=== PATIENT | male | born 1950 | race Caucasian/White ===

== ENCOUNTER → 2018-04-25 | Outpatient (CLI) | payer OTHER, BC | END | disposition home or self-care (01) | LOC: ULTRA 12:44 | DX: K74.60 Unspecified cirrhosis of liver (principal); R18.8 Other ascites ==

== ENCOUNTER 2018-05-08 00:30 | Inpatient (IN) | payer OTHER, BC ==
[~2018-05-08] VITALS: Ht 190.5 cm; Wt 141.6 kg
--- NOTE | ~2018-05-08 | D ---
[facility] [place] [address] DISCHARGE SUMMARY Name: FREDERIC WHIPPLE Room #: 218-P [facility] IN M.R.#: [id number] Admission: 05/08/18 Attend Phys: Oscar Upton MD Discharge: 05/16/18 Date of : 48 Report #: [id number] THIS REPORT FOR: //name// CC: Alberto Upton FINAL DIAGNOSES: 1. Scrotal cellulitis. 2. Cirrhosis of the liver. 3. Abdominal ascites. 4. Diabetes type 2. 5. Chronic kidney disease stage 4. PROCEDURES: 1. Paracentesis x 2. 2. Scrotal ultrasound x 2. HOSPITAL COURSE: The patient is admitted with abdominal pain and scrotal pain. There were signs of cellulitis and initial concern for bacterial peritonitis; however, cultures of the peritoneal fluid were negative. He received 2 separate episodes of paracentesis removing 17 liters followed by, I believe, 12 liters. His creatinine bumped slightly from around 1.8 or 1.9 up to about 2.3. His lymphedema was controlled with his wraps. Dr. Rafael Quevedo followed him. I had the Urology service see him, but ultrasound did not confirm or show a need for drainage of abscess from the scrotum and therefore that was treated conservatively. I had had long discussions with him on several different days regarding post-hospital care including options of nursing home rehabilitation and home health, which he continued to decline. I spoke to him on the day of discharge about his grave prognosis with liver failure and potential for renal failure and that he was not a very good candidate for dialysis. He is going to take this under consideration. PHYSICAL EXAMINATION: GENERAL: On the day of discharge, he was resting comfortably in bed. LUNGS: Clear. HEART: Regular. ABDOMEN: Protuberant, soft, fluid wave. Normal bowel sounds. EXTREMITIES: No edema. DISPOSITION: He is discharged to home to resume diet, activity, usual medications with Augmentin for 7 more days. His prognosis is poor. <ELECTRONICALLY SIGNED> By: Oscar Upton MD 05/19/18 1211 1017 1049 Oscar Upton MD /nt
--- NOTE | ~2018-05-08 | EKG ---
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
--- NOTE | ~2018-05-08 | HC ---
[facility] [place] [address] CONSULTATION Name: FREDERIC WHIPPLE Room #: 218-P ADM IN M.R.#: [id number] Admission: 05/08/18 Attend Phys: Oscar Upton MD Discharge: Date of : 48 Report #: [id number] THIS REPORT FOR: //name// CC: Alberto Upton DATE OF SERVICE: 05/08/2018 REASON FOR CONSULTATION: Possible peritonitis. HISTORY OF PRESENT ILLNESS: The patient is a 68-year-old with cirrhosis, portal hypertension and recurrent ascites. Diagnosed nonalcoholic steatohepatitis with cirrhosis. Has been evaluated at [facility] for TIPS and/or transplantation. Due to multiple factors he was not a suitable candidate for either. He has been undergoing repeat paracenteses of large volume. Two days ago, he developed increased abdominal pain with predominant right-sided including his hip region and down into his groin. No fever, chills or sweats. No trauma. Severity up to 10/10. He has had intermittent nausea with no vomiting. No definite abdominal pain outside of this right-sided discomfort. No diarrhea. No dysuria or frequency. No hematuria. He has had some discomfort into his right groin previously. No back or disk disease noted prior. He presented to the Emergency Room where small volume paracentesis was obtained. He is scheduled for large volume paracentesis today. REVIEW OF SYSTEMS: CONSTITUTIONAL: Denies any other constitutional symptoms than noted above. SKIN: Unremarkable. LYMPH: Negative. HEMATOLOGIC: Negative. PULMONARY: Negative. CARDIOVASCULAR: Negative. It is felt that his ascites is due to his portal hypertension. GASTROINTESTINAL: As above. GENITOURINARY: Negative. JOINTS: Negative. NEUROLOGIC: Negative. PSYCHIATRIC: Negative. PAST MEDICAL HISTORY: Hypertension, hyperlipidemia, diabetes, cirrhosis, varices, peripheral neuropathy, obesity, obstructive sleep apnea, stroke, previous toe amputation, knee surgery, cataract surgery. FAMILY HISTORY: Noncontributory. SOCIAL HISTORY: Nonsmoker, no significant alcohol intake. Lives at home by himself. He is a , has pet cat. No HIV risks. Previous work as a [facility] [employer] [place] [address] CONSULTATION Name: FREDERIC WHIPPLE Room #: 218-P 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 PHYSICAL EXAMINATION: VITAL SIGNS: Temperature 99.2, heart rate 68, blood pressure 96/55. He is on 2 liters of oxygen per nasal cannula. GENERAL: He was alert and cooperative and pleasant, in no acute distress. Mood and affect normal. Mental status normal. HEENT: Unremarkable. NECK: Supple, with no thyromegaly or mass. JVD normal. LUNGS: Clear. HEART: Regular, without murmur, gallop or rub. ABDOMEN: Very large, protuberant abdomen with large volume of ascites. No peritoneal signs. Could not palpate masses or hepatosplenomegaly. GENITOURINARY: External genitalia unremarkable with very mild tenderness to his right testicle. 1+ scrotal edema. EXTREMITIES: 3+ lower extremity edema. Extremities otherwise unremarkable. He had compression wraps on. Range of motion in both hips normal. No tenderness on internal and external rotation. BACK: Nontender. He had no CVA tenderness. NEUROLOGIC: Nonfocal. RECTAL: Not performed. LABORATORY STUDIES: Sodium 133, potassium 4.9, bicarbonate 20, creatinine 1.8, bilirubin 1.2, alkaline phosphatase 334, AST 16, ALT 20. BNP 4600. Hemoglobin 11.6, platelet count 211,000, WBC 15.5 with 87% segs. Urinalysis unremarkable. Paracentesis 20,300 RBCs, 153 WBCs with 68% neutrophils. Culture pending. Gram stain pending. Chest x-ray was clear. CT of the abdomen: Cirrhosis, portal hypertension, increased spleen size, ascites, questionable colitis. IMPRESSION: Increased abdominal pain concerning for peritonitis. Diagnostic tap, however, did not confirm this. I am suspecting much of his pain is related to his large volume of ascites. He does have leukocytosis, source of which is yet to be determined. No other evidence of end organ disease noted. I do not think that he has got infection in the hip for it was not irritable during examination. He does have mild testicular tenderness, but nothing that appears swollen and more than I would expect with the amount of edema that he has. His urinalysis was unremarkable. Elevated brain natriuretic peptide concerning for a component of cardiac source of his edema. This may be right-sided disease. In addition, the patient has hypertension, diabetes, which is stable and chronic kidney disease. Hepatorenal syndrome is a true possibility, although his creatinine is at his baseline of 1.8. RECOMMENDATION: We will continue with ceftriaxone and metronidazole pending further studies. He will have a repeat paracentesis today and we will see if [facility] [address] [place] [address] CONSULTATION Name: FREDERIC WHIPPLE Room #: 218-P ADM IN M.R.#: [id number] Admission: 05/08/18 Attend Phys: Oscar Upton MD Discharge: Date of : 48 Report #: [id number] this helps his pain. If not, we will proceed with further workup. We would also check echocardiogram if not done yet. <ELECTRONICALLY SIGNED> By: Rafael Quevedo MD 05/09/18 1829 1201 1824 Rafael Quevedo MD /nt
--- NOTE | ~2018-05-08 | HC ---
[facility] [place] [address] CONSULTATION Name: FREDERIC WHIPPLE Room #: 218-P ADM IN M.R.#: [id number] Admission: 05/08/18 Attend Phys: Oscar Upton MD Discharge: Date of : 48 Report #: [id number] THIS REPORT FOR: //name// CC: Alberto Upton DATE OF SERVICE: 05/09/2018 CHIEF COMPLAINT: Right scrotal lesion. HISTORY OF PRESENT ILLNESS: The patient is a 68-year-old gentleman who is being seen today at the request Dr. Upton for evaluation and management of right hemiscrotal lesion. He was noted to have thickening of the right hemiscrotum and an ultrasound was performed, which did not show an abscess. He currently is admitted with difficulties walking. History is significant for [id number]-[id number] cirrhosis of the liver, having required multiple paracenteses procedures. PAST MEDICAL HISTORY: LÓPEZ cirrhosis with ascites, type 2 diabetes, chronic kidney disease stage 3 surgery. PAST SURGICAL HISTORY: Unknown. FAMILY HISTORY: Noncontributory. SOCIAL HISTORY: No alcohol or tobacco abuse. ALLERGIES: None. HOME MEDICATIONS: Lasix, Amaryl, Glucophage, Plavix, and Protonix. REVIEW OF SYSTEMS: He has lower abdominal pain. PHYSICAL EXAMINATION: GENERAL: He is lying in bed. He is a well-developed, well-nourished gentleman. VITAL SIGNS: Temperature 36.6, pulse 60, respirations 16, blood pressure 115/72. ABDOMEN: Protuberant with ascites. GENITOURINARY: He has normal phallus. Testes descended bilaterally. He does have area on the right side of the scrotum, which is indurated, but he reports general tenderness with any sort of scrotal manipulation. LABORATORY DATA: White count 10.3 thousand, hemoglobin 8.9, hematocrit 26.9, platelets 84847. Sodium is 132, potassium 6.0, chloride 105, CO2 20, BUN 46, creatinine 2.0, glucose 247. Urine is clear yellow, specific gravity is 1.025, pH 5.5, negative for protein, ketones, blood, nitrites or leukocyte esterase. [address] [address] CONSULTATION Name: FREDERIC WHIPPLE Room #: 218-P ADM IN M.R.#: [id number] Admission: 05/08/18 Attend Phys: Oscar Upton MD Discharge: Date of : 48 Report #: [id number] Paracentesis yesterday was successful draining mL of ascites. IMAGING DATA: Scrotal ultrasound shows 3.2 x 2.5 x 2.6 focal area of soft tissue swelling and induration on the lateral aspect of the right scrotum consistent with a phlegmon or hematoma. There is no definite fluid collection to suggest abscess. IMPRESSION: Right scrotal cellulitis. PLAN: We will reexamine him in the morning. If this does organize, he may require drainage. However, he has been on Plavix until hospitalization. This would potentially complicate a procedure. <ELECTRONICALLY SIGNED> By: Oscar Lindsay MD 05/12/18 0633 1732 0356 Oscar Lindsay MD /nt
--- NOTE | ~2018-05-08 | 2DMMODE ---
[facility] [place] [address] 2 D/M-MODE ECHOCARDIOGRAM Name: FREDERIC WHIPPLE Room #: 200-I ADM IN M.R.#: [id number] Admission: 05/08/18 Attend Phys: Brittany Wang Discharge: Date of : 48 Date of Service: 05/08/18 1445 Report #: [id number] THIS REPORT FOR: //name// APPROVED REPORT Study performed: 05/08/2018 13:36:53 EXAM: Comprehensive 2D, Doppler, and color-flow Echocardiogram Patient Location: Echo lab Room #: 200 Status: routine BSA: 2.64 HR: 60 bpm BP: 95/55 mmHg Rhythm: NSR Other Information Study Quality: Adequate Technically limited study due to morbid obesity. Exam done with patient in wheelchair. Indications Edema, cirrhosis. 2D Dimensions RVDd: 45.20 mm IVSd: 12.01 (7-11mm) LVOT Diam: 21.25 (18-24mm) LVDd: 45.93 mm PWd: 11.70 (7-11mm) Ascending Ao: 42.34 (22-36mm) LVDs: 29.06 (25-40mm) Aortic Root: 36.43 mm Fiore's LVEF: 66.62 % Volumes Left Atrial Volume (Systole) Single Plane 4CH: 64.17 mL Single Plane 2CH: 80.71 mL LA ESV Index: 30.00 mL/m2 Aortic Valve AoV Peak Corbin.: 2.09 m/s AO Peak Gr.: 17.52 mmHg LVOT Max P.25 mmHg AO Mean Gr.: 11.41 mmHg AO V2 Mean: 1.64 m/s LVOT Max V: 1.25 m/s AO V2 VTI: 37.81 cm CORTEZ Vmax: 2.12 cm2 [facility] [place] [address] 2 D/M-MODE ECHOCARDIOGRAM Name: SARABJITFREDERIC E Room #: 200-I [facility] IN ..#: [id number] Admission: 05/08/18 Attend Phys: Brittany Wang Discharge: Date of : 48 Date of Service: 05/08/18 1445 Report #: [id number] Mitral Valve E/A Ratio: 3.5 MV Decel. Time: 237.41 ms MV E Max Corbin.: 0.97 m/s MV A Corbin.: 0.28 m/s MV PHT: 68.85 ms IVRT: 83.04 ms Pulmonary Valve PV Peak Corbin.: 1.39 m/s PV Peak Gr.: 7.68 mmHg Tricuspid Valve TR Peak Corbin.: 3.01 m/s RAP Estimate: 5.00 mmHg TR Peak Gr.: 36.26 mmHg PA Pressure: 41.00 mmHg Left Ventricle The left ventricle is normal size. There is normal LV segmental wall motion. Mild concentric left ventricular hypertrophy. The left ventricular systolic function is normal. The left ventricular ejection fraction is within the normal range. LVEF is 65-70%. Moderate diastolic dysfunction is present (pseudonormal filling). Right Ventricle Right ventricle is mildly dilated. The right ventricular systolic function is normal. Atria Left atrium is mildly dilated. Right atrium is mildly dilated. Aortic Valve The Aortic valve is moderately sclerotic. Mild to moderate aortic regurgitation. There is no aortic valvular stenosis. Mitral Valve Mitral valve leaflets are thickened. There is no mitral valve regurgitation noted. No evidence of mitral valve stenosis. Tricuspid Valve The tricuspid valve is normal in structure. Mild to moderate tricuspid regurgitation. Estimated PAP is 40-45mmHg. Pulmonic Valve [address] [address] 2 D/M-MODE ECHOCARDIOGRAM Name: FREDERIC WHIPPLE Room #: 200-I [facility] IN [facility]#: [id number] Admission: 05/08/18 Attend Phys: Brittany Wang Discharge: Date of : 48 Date of Service: 05/08/18 1445 Report #: [id number] The pulmonary valve is normal in structure. Trace pulmonic regurgitation. Great Vessels The aortic root is normal in size. Ascending aorta is dilated at 4.2cm. IVC is normal in size and collapses >50% with inspiration. Pericardium There is no pericardial effusion. <Conclusion> The left ventricle is normal size. Mild concentric left ventricular hypertrophy. The left ventricular systolic function is normal. Moderate diastolic dysfunction is present (pseudonormal filling). Right ventricle is mildly dilated. The right ventricular systolic function is normal. Left atrium is mildly dilated. The Aortic valve is moderately sclerotic. Mild to moderate aortic regurgitation. There is no mitral valve regurgitation noted. Mild to moderate tricuspid regurgitation. Estimated PAP is 40-45mmHg. There is no pericardial effusion. <ELECTRONICALLY SIGNED> By: Tank Gracia MD 05/08/18 1445 1445 1445 Tank Gracia MD /INF
--- NOTE | ~2018-05-08 | EKG ---
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 05/08/18 0848 0209 0209 William Retana MD, [facility] /EPI
--- NOTE | ~2018-05-08 | H ---
[facility] [place] [address] HISTORY AND PHYSICAL Name: FREDERIC WHIPPLE Room #: 200-I ADM IN M.R.#: [id number] Admission: 05/08/18 Attend Phys: Oscar Upton MD Discharge: Date of : 48 Report #: [id number] THIS REPORT FOR: //name// CC: Alberto Upton DATE OF SERVICE: 05/08/2018 CHIEF COMPLAINT: Right hip abdominal and scrotal pain. HISTORY OF PRESENT ILLNESS: The patient is a 68-year-old gentleman with nonalcohol steatohepatitis and cirrhosis of the liver, who was admitted to the Emergency Room with some generalized pain. He was having pain in his right hip and was having difficulty walking. He also complained of some swelling and redness of his scrotum. He reported to ER that he had some pain in the right lower quadrant. Symptoms are not improved with conservative treatment at home, and he presented to the Emergency Room. He has had a history of massive ascites. It required multiple paracentesis procedures in recent months times. He has had 14 liters of fluid removed with paracentesis. He has been evaluated for a TIPS procedure, both here and at , and unfortunately, he is not a candidate for this, nor candidate for liver transplant according to his report of his conversation with the hepatology team at . PAST MEDICAL HISTORY: LÓPEZ, cirrhosis of liver with ascites, diabetes type 2, chronic kidney disease stage 3. PAST SURGICAL HISTORY: Unknown. FAMILY HISTORY: Noncontributory. SOCIAL HISTORY: No chronic alcohol or tobacco use. ALLERGIES: Unknown. MEDICATIONS: Lasix, Amaryl, Glucophage, Plavix, Protonix. REVIEW OF SYSTEMS: He denies headache, chest pain, shortness of breath, dysuria, myalgias, arthralgias, syncope or fall. PHYSICAL EXAMINATION: VITAL SIGNS: Temperature 37.3, pulse 68, respirations 20, blood pressure 96/55, O2 sat 99% on room air. GENERAL: He is awake and alert, resting in bed in no distress. HEAD AND NECK: Unremarkable. LUNGS: Clear. HEART: Regular. [facility] [address] [place] [address] HISTORY AND PHYSICAL Name: FREDERCI WHIPPLE Room #: 200-I [facility] IN [facility]#: [id number] Admission: 05/08/18 Attend Phys: Oscar Upton MD Discharge: Date of : 48 Report #: [id number] ABDOMEN: Protuberant, soft. There is a palpable fluid. Normoactive bowel sounds. No rebound tenderness in the right quadrant. Scrotum is red with some swelling. EXTREMITIES: 2+ edema with lymphedema wraps. NEUROLOGIC: Cranial nerves intact. Speech is fluent. Motor strength 4/5. LABORATORY DATA: CT of the abdomen was reviewed, chest x-ray, lab work. I discussed the case with the ER physician and Infectious Disease. ASSESSMENT: 1. Abdominal ascites. 2. Abdominal pain. 3. Cirrhosis of the liver. 4. Nonalcoholic steatohepatitis. 5. Diabetes type 2. 6. Chronic kidney disease, stage 3. 7. Lymphedema. 8. History of esophageal varices on EGD 2 years ago. 9. Portal hypertension. PLAN: Fluid was removed for culture in the ER, he has received one dose of antibiotics, and I have asked Dr. Rafael Quevedo to see him in consultation for consideration of bacterial peritonitis given his elevated white count and some abdominal pain. He is scheduled for paracentesis again today and may need a second procedure tomorrow. Other home medications will continue with the exception of metformin, which is to be discontinued due to his renal disease. <ELECTRONICALLY SIGNED> By: Oscar Upton MD 05/08/18 1208 1050 1153 Oscar Upton MD /nt
[~2018-05-08 00:30] MED LIST: ALDACTONE50 MG PO; AMARYL2 MG PO; ASA5UEC PO; ASPERCREME76.5 GM TOP; LACTULOSE20 GM/30 M PO; LANTUS SOL100 UNIT/1 SUBQ; LASIX 20 MG TAB20 MG PO; METFORMIN HCL500 MG PO; PLAVIX 75 MG TA75 M1 PO; PROTONIX 20 MG20 M1 PO; TRIAMCINOLONE A80 G2 TOP
[2018-05-08 00:47] VITALS: BP 132/60
[2018-05-08] MEDS ORDERED: AMARYL2 MG PO (01:08)
[2018-05-08] MEDS ORDERED: LASIX 40 MG TAB40 M2 PO (01:08)
[2018-05-08] MEDS ORDERED: GLUCOPHAGE XR500 MG PO (01:09)
[2018-05-08] MEDS ORDERED: PLAVIX 75 MG TA75 M1 PO (01:09)
[2018-05-08] MEDS ORDERED: PROTONIX 20 MG20 MG PO (01:10)
[2018-05-08] MEDS ORDERED: INSULIN PEN NE1 EAC1 (01:12)
[2018-05-08 01:29] LABS: ABSOLUTE NEUTROPHILS 13.6 thou/uL (1.4-8.2); BASOPHILS 0.5 % (0.0-2.0); HEMATOCRIT 35.8 % (42.0-52.0); HEMOGLOBIN 11.6 gm/dL (14.0-18.0); LYMPHOCYTES 3.5 % (24.0-44.0); MCH 24.4 pg (26.0-34.0); MCHC 32.3 g/dL (28.0-37.0); MCV 75.7 fL (80.0-100.0); MONOCYTES 7.3 % (1.0-8.0); PLATELET COUNT 211 thou/uL (150-400); POLYS 87.7 % (36.0-66.0); RBC 4.73 mil/uL (4.50-6.00); RDW 18.5 % (10.5-14.5); WBC 15.5 thou/uL (4.0-11.0)
[2018-05-08 01:34] LABS: CALCIUM 10.2 mg/dL (8.5-10.1); CREATININE 1.8 mg/dL (0.7-1.3); POTASSIUM 4.9 mmol/L (3.5-5.1)
[2018-05-08 01:47] LABS: ALBUMIN 2.4 g/dL (3.4-5.0); DIRECT BILIRUBIN 0.5 mg/dL (<0.1-0.3); TOTAL BILIRUBIN 1.2 mg/dL (<0.1-1.0); TOTAL PROTEIN 6.6 g/dL (6.4-8.2)
[2018-05-08 03:50] LABS: URINE BILIRUBIN NEGATIVE (Negative); URINE BLOOD NEGATIVE (Negative); URINE CLARITY CLEAR; URINE COLOR YELLOW; URINE GLUCOSE-RANDOM* NEGATIVE (Negative); URINE KETONES NEGATIVE (Negative); URINE LEUKOCYTES-REFLEX NEGATIVE (Negative); URINE NITRITE-REFLEX NEGATIVE (Negative); URINE PROTEIN (DIPSTICK) NEGATIVE (Negative); URINE SPECIFIC GRAVITY 1.025 (1.005-1.035); URINE UROBILINOGEN 0.2 E.U./dl (0.2-1.0)
[2018-05-08 04:57] LABS: BF NUCLEATED CELLS 153; BF RBC 20347
[2018-05-08 04:58] LABS: CLARITY CLOUDY; COLOR PINK; TOTAL VOLUME 6 mL
[2018-05-08 05:12] LABS: INR 1.1; PROTIME 10.8 Seconds (9.3-11.4)
[2018-05-08 05:43] LABS: BF MACROPHAGE 1; BF NEUTROPHILS 68; SOURCE PERITONEAL
[2018-05-08 05:50] VITALS: BP 108/46
[2018-05-08 06:17] VITALS: BP 96/55
[2018-05-08 19:30] VITALS: BP 113/39
[2018-05-09 00:03] VITALS: BP 112/44
[2018-05-09 03:29] LABS: ABSOLUTE NEUTROPHILS 8.8 thou/uL (1.4-8.2); BASOPHILS 0.2 % (0.0-2.0); EOSINOPHILS 0.9 % (0.0-3.0); HEMATOCRIT 26.9 % (42.0-52.0); LYMPHOCYTES 4.2 % (24.0-44.0); MCH 25.1 pg (26.0-34.0); MCHC 32.9 g/dL (28.0-37.0); MCV 76.4 fL (80.0-100.0); MONOCYTES 8.9 % (1.0-8.0); POLYS 85.8 % (36.0-66.0); RBC 3.53 mil/uL (4.50-6.00); WBC 10.3 thou/uL (4.0-11.0)
[2018-05-09 03:35] LABS: HEMOGLOBIN 8.9 gm/dL (14.0-18.0); PLATELET COUNT 97 thou/uL (150-400)
[2018-05-09 03:44] LABS: ALBUMIN 1.6 g/dL (3.4-5.0); TOTAL BILIRUBIN 0.5 mg/dL (<0.1-1.0); TOTAL PROTEIN 4.8 g/dL (6.4-8.2)
[2018-05-09 04:06] VITALS: BP 115/47
[2018-05-09 07:30] VITALS: BP 116/48
[2018-05-09 16:43] VITALS: BP 115/72
[2018-05-09 20:43] VITALS: BP 113/57
[2018-05-10 03:13] LABS: HEMATOCRIT 28.5 % (42.0-52.0); HEMOGLOBIN 9.5 gm/dL (14.0-18.0); MCH 24.9 pg (26.0-34.0); MCHC 33.3 g/dL (28.0-37.0); MCV 74.9 fL (80.0-100.0); RBC 3.8 mil/uL (4.50-6.00); RDW 19.2 % (10.5-14.5); WBC 10.8 thou/uL (4.0-11.0)
[2018-05-10 03:20] LABS: CALCIUM 8.7 mg/dL (8.5-10.1)
[2018-05-10 03:21] LABS: POTASSIUM 4.8 mmol/L (3.5-5.1)
[2018-05-10 04:01] VITALS: BP 113/59
[2018-05-10 07:19] VITALS: BP 98/55
[2018-05-10 16:16] VITALS: BP 92/48
[2018-05-10 19:35] VITALS: BP 107/45
[2018-05-11 04:23] LABS: CALCIUM 8.5 mg/dL (8.5-10.1); CREATININE 2.1 mg/dL (0.7-1.3); POTASSIUM 4.5 mmol/L (3.5-5.1)
[2018-05-11 04:24] VITALS: BP 98/55
[2018-05-11 04:39] LABS: HEMATOCRIT 27.7 % (42.0-52.0); HEMOGLOBIN 9.3 gm/dL (14.0-18.0); MCH 25.2 pg (26.0-34.0); MCHC 33.6 g/dL (28.0-37.0); MCV 74.9 fL (80.0-100.0); RBC 3.7 mil/uL (4.50-6.00); RDW 19.3 % (10.5-14.5); WBC 9.7 thou/uL (4.0-11.0)
[2018-05-11 08:30] VITALS: BP 107/64
[2018-05-11 12:15] VITALS: BP 108/54
[2018-05-11 16:42] VITALS: BP 109/57
[2018-05-11 20:30] VITALS: BP 115/56
[2018-05-12 04:45] VITALS: BP 111/50
[2018-05-12 07:57] VITALS: BP 113/52
[2018-05-12 11:34] LABS: CALCIUM 8.8 mg/dL (8.5-10.1); CREATININE 2.3 mg/dL (0.7-1.3); POTASSIUM 4.5 mmol/L (3.5-5.1)
[2018-05-12 12:03] VITALS: BP 100/47
[2018-05-12 16:10] VITALS: BP 117/57
[2018-05-12 18:55] VITALS: BP 109/56
[2018-05-13 04:17] VITALS: BP 112/43
[2018-05-13 07:45] VITALS: BP 103/57
[2018-05-13 11:32] LABS: CALCIUM 8.8 mg/dL (8.5-10.1); CREATININE 2.3 mg/dL (0.7-1.3); POTASSIUM 4.3 mmol/L (3.5-5.1)
[2018-05-13 11:55] VITALS: BP 95/44
[2018-05-13 15:30] VITALS: BP 113/56
[2018-05-13 20:16] VITALS: BP 108/56
[2018-05-14 03:28] VITALS: BP 121/57
[2018-05-14 07:55] VITALS: BP 110/62
[2018-05-14 12:00] VITALS: BP 113/61
[2018-05-14 12:02] LABS: CALCIUM 8.8 mg/dL (8.5-10.1); CREATININE 2.3 mg/dL (0.7-1.3); POTASSIUM 4.5 mmol/L (3.5-5.1)
[2018-05-14 16:05] VITALS: BP 116/63
[2018-05-14 19:50] VITALS: BP 129/64
[2018-05-15 03:35] VITALS: BP 108/63
[2018-05-15 04:32] LABS: HEMATOCRIT 28.8 % (42.0-52.0); HEMOGLOBIN 9.5 gm/dL (14.0-18.0); MCH 25.1 pg (26.0-34.0); MCV 76.1 fL (80.0-100.0); PLATELET COUNT 110 thou/uL (150-400); RBC 3.79 mil/uL (4.50-6.00); RDW 19.3 % (10.5-14.5); WBC 8.8 thou/uL (4.0-11.0)
[2018-05-15 04:34] LABS: ALBUMIN 1.4 g/dL (3.4-5.0); CALCIUM 8.6 mg/dL (8.5-10.1); CREATININE 2.3 mg/dL (0.7-1.3); POTASSIUM 4.5 mmol/L (3.5-5.1); TOTAL BILIRUBIN 0.5 mg/dL (<0.1-1.0); TOTAL PROTEIN 4.8 g/dL (6.4-8.2)
[2018-05-15 05:01] LABS: ABSOLUTE NEUTROPHILS 7.1 thou/uL (1.4-8.2); ANISOCYTOSIS 1+; METAMYELOCYTES 3 %; TOXIC GRANULATION 2+
[2018-05-15 05:02] LABS: LARGE PLATELETS OCCASIONAL
[2018-05-15 07:58] VITALS: BP 111/61
[2018-05-15 11:51] VITALS: BP 116/64
[2018-05-15 19:49] VITALS: BP 113/60
[2018-05-16 00:07] VITALS: BP 110/59
[2018-05-16 04:09] LABS: CALCIUM 8.6 mg/dL (8.5-10.1); CREATININE 2.3 mg/dL (0.7-1.3); POTASSIUM 4.5 mmol/L (3.5-5.1)
[2018-05-16 04:36] VITALS: BP 111/63
[2018-05-16 08:17] VITALS: BP 109/61
[2018-05-16] MEDS ORDERED: AUGMENTIN 500-1 EACH PO (09:49)
[2018-05-16 12:09] VITALS: BP 122/64
== END 2018-05-16 16:40 | DRG 432 ==
LOC: ER 00:30 → 2N 05:04 → EROBS 05:04 → 2N 05:51
PROVIDERS: Emergency Medicine; Internal Medicine Geriatric Medicine; Internal Medicine Infectious Disease
PROC: 0W9G3ZZ Drainage of Peritoneal Cavity, Percutaneous Approach (ICD-10-PCS; principal; 2018-05-08)
PROC: 0W9G3ZZ Drainage of Peritoneal Cavity, Percutaneous Approach (ICD-10-PCS; 2018-05-10)
DX: K74.60 Unspecified cirrhosis of liver (principal); K65.8 Other peritonitis; E43 Unspecified severe protein-calorie malnutrition; R18.8 Other ascites; K76.6 Portal hypertension; N18.4 Chronic kidney disease, stage 4 (severe); N49.2 Inflammatory disorders of scrotum; D72.829 Elevated white blood cell count, unspecified; E78.5 Hyperlipidemia, unspecified; E11.22 Type 2 diabetes mellitus with diabetic chronic kidney disease; I12.9 Hypertensive chronic kidney disease with stage 1 through stage 4 chronic kidney disease, or unspecified chronic kidney disease; E11.42 Type 2 diabetes mellitus with diabetic polyneuropathy; K75.81 Nonalcoholic steatohepatitis (NASH); R26.2 Difficulty in walking, not elsewhere classified; M25.551 Pain in right hip; G47.33 Obstructive sleep apnea (adult) (pediatric); R26.89 Other abnormalities of gait and mobility; Z79.899 Other long term (current) drug therapy; Z86.73 Personal history of transient ischemic attack (TIA), and cerebral infarction without residual deficits; Z87.19 Personal history of other diseases of the digestive system
CPT/HCPCS: 10081

== ENCOUNTER 2018-05-27 22:01 | Inpatient (IN) | payer OTHER, BC ==
[~2018-05-27] VITALS: Ht 190.5 cm; Wt 144.7 kg
--- NOTE | ~2018-05-27 | D ---
[facility] [place] [address] DISCHARGE SUMMARY Name: FREDERIC WHIPPLE Room #: 222-P ADM IN M.R.#: [id number] Admission: 05/27/18 Attend Phys: Oscar Upton MD Discharge: Date of : 48 Report #: [id number] THIS REPORT FOR: //name// CC: Alberto Upton FINAL DIAGNOSES: 1. General debility. 2. Lower extremity weakness. 3. Recurrent falls. 4. Cirrhosis of the liver. 5. Nonalcoholic steatohepatitis. 6. Portal hypertension. 7. Chronic kidney disease stage 4. 8. Diabetes type 2. 9. Abdominal ascites. 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 He just completed an approximately 10-14 day inpatient rehabilitation course. Medically, lab work was unremarkable. He underwent another paracentesis with 13 liters of fluid removed. He had no other interval complication. DISPOSITION: He is being transferred to [facility] for rehabilitation efforts. He will continue current medications. He is working on assist devices at home to manage his mobility issues. By: 1604 1613 Oscar Upton MD /nt
--- NOTE | ~2018-05-27 | H ---
[facility] [place] [address] HISTORY AND PHYSICAL Name: FREDERIC WHIPPLE Room #: 422-P ADM IN M.R.#: [id number] Admission: 05/27/18 Attend Phys: Oscar Upton MD Discharge: Date of : 48 Report #: [id number] THIS REPORT FOR: //name// CC: Alberto Upton DATE OF SERVICE: 05/28/2018 CHIEF COMPLAINT: Weakness and a fall. HISTORY OF PRESENT ILLNESS: The patient is a 68-year-old gentleman with end-stage liver disease and cirrhosis due to nonalcoholic steatohepatitis, came to the Emergency Room after a fall. He was just hospitalized for almost 2 weeks here with several paracenteses and also treatment for scrotal cellulitis with IV antibiotics. The studies did not reveal an abscess and he did not require any surgical intervention. Then, he transferred to [facility] for almost 2 weeks for physical therapy. He was just discharged yesterday after working with the team where he was mod independent with ADL function including transfers from a hospital bed and he was walking 150 feet with a roller walker. He apparently went home and was ordering a lift chair when his grandson darted in front of him and it caused him to fall in a doorway. He was unable to get up and had required significant assistance. His daughter took him home and then, he was unable to get out of bed and had to call the fire department. He was brought to the Emergency Room and his daughter says that she cannot manage him at home due to his obesity and weight and global weakness issues. PAST MEDICAL HISTORY: As mentioned cirrhosis of the liver due to LÓPEZ, has recurrent significant abdominal ascites, portal hypertension, history of esophageal varices, diagnosed at [facility] 1 or 2 years ago. He has had no recent bleeding. He has been evaluated for TIPS and transplant at [facility], but he is not a candidate due to his anatomy, also chronic kidney disease stage 4, diabetes, hypertension. PAST SURGICAL HISTORY: None. FAMILY HISTORY: Noncontributory. SOCIAL HISTORY: No chronic alcohol or tobacco use. ALLERGIES: None. MEDICATIONS: Tramadol, lactulose, Lasix, Amaryl, Protonix. REVIEW OF SYSTEMS: Denies headache, chest pain, shortness of breath, some abdominal pain and abdominal distention. No nausea, vomiting, dysuria or syncope. [facility] [address] [address] HISTORY AND PHYSICAL Name: FREDERIC WHIPPLE Room #: 422-P [facility] IN .R.#: [id number] Admission: 05/27/18 Attend Phys: Oscar Upton MD Discharge: Date of : 48 Report #: [id number] PHYSICAL EXAMINATION: VITAL SIGNS: Temperature 36.8, pulse 51, respirations 18, blood pressure 107/55, O2 sat 99% on room air. GENERAL: He is awake and alert, in no distress. HEAD AND NECK: Unremarkable. LUNGS: Clear. HEART: Regular. ABDOMEN: Protuberant, obese with a fluid wave. Normal bowel sounds. Nontender. EXTREMITIES: No edema. NEUROLOGIC: Global strength 3-4/5 throughout. LABORATORY: Reviewed. ASSESSMENT: 1. Cirrhosis of the liver. 2. Nonalcoholic steatohepatitis. 3. Abdominal ascites. 4. Portal hypertension. 5. Chronic kidney disease, stage 4. 6. Anemia of chronic disease. 7. Morbid obesity. 8. General debility due to medical condition. PLAN: He has already completed about 2 weeks of inpatient rehabilitation, which did not seem to be able to manage his issues at home. I think he is unrealistic and that he needs a 24-hour living assistance, but refuses that discussion. He claims that a lift chair being delivered on Tuesday of this week will solve his mobility issues at home. I will have social work confer with him and his daughter whether this is a reasonable plan or not. In regards to the liver disease as mentioned, he has already been assessed at [facility] and there is no treatment option since this looks to be a terminal situation. We are trying to manage him with a paracentesis every couple of weeks, but it is becoming more of a challenge on his overall situation. Overall, prognosis is poor. <ELECTRONICALLY SIGNED> By: Oscar Upton MD 05/28/18 1822 [id number] Oscar Upton MD /nt
[~2018-05-27 22:01] MED LIST changes: +AUGMENTIN 500-1 EACH PO; +GLUCOPHAGE XR500 MG PO; +INSULIN PEN NE1 EAC1; +LASIX 40 MG TAB40 M2 PO; +PROTONIX 20 MG20 MG PO
[2018-05-27 22:03] VITALS: BP 124/59
[2018-05-27] MEDS ORDERED: METFORMIN HCL500 MG PO (22:07)
[2018-05-27] MEDS ORDERED: LANTUS100 UNIT/M SUBQ (22:09)
[2018-05-27] MEDS ORDERED: TRAMADOL 50 MG50 MG PO (22:11)
[2018-05-27 23:41] LABS: HEMATOCRIT 24.7 % (42.0-52.0); HEMOGLOBIN 8.1 gm/dL (14.0-18.0); MCH 25.4 pg (26.0-34.0); MCHC 32.9 g/dL (28.0-37.0); MCV 77.4 fL (80.0-100.0); PLATELET COUNT 119 thou/uL (150-400); RDW 19.7 % (10.5-14.5); WBC 8.3 thou/uL (4.0-11.0)
[2018-05-27 23:45] LABS: CALCIUM 8.8 mg/dL (8.5-10.1); CREATININE 2.4 mg/dL (0.7-1.3); POTASSIUM 5.1 mmol/L (3.5-5.1)
[2018-05-28 00:09] LABS: ABSOLUTE NEUTROPHILS 7.3 thou/uL (1.4-8.2)
[2018-05-28 00:10] LABS: ANISOCYTOSIS 1+
[2018-05-28 00:32] VITALS: BP 112/54
[2018-05-28 00:38] VITALS: BP 112/54
[2018-05-28 03:33] VITALS: BP 107/55
[2018-05-28 08:00] VITALS: BP 112/68
[2018-05-28 09:04] LABS: HEMATOCRIT 25.9 % (42.0-52.0); HEMOGLOBIN 8.5 gm/dL (14.0-18.0); MCH 25.4 pg (26.0-34.0); MCHC 32.7 g/dL (28.0-37.0); MCV 77.8 fL (80.0-100.0); RBC 3.33 mil/uL (4.50-6.00); WBC 6.8 thou/uL (4.0-11.0)
[2018-05-28 09:13] LABS: PROTIME 10.4 Seconds (9.3-11.4)
[2018-05-28 09:15] LABS: CALCIUM 9.4 mg/dL (8.5-10.1); CREATININE 2.4 mg/dL (0.7-1.3)
[2018-05-28 16:00] VITALS: BP 116/72
[2018-05-28 21:50] VITALS: BP 111/39
[2018-05-29 03:20] VITALS: BP 116/46
[2018-05-29 05:42] LABS: CALCIUM 8.5 mg/dL (8.5-10.1); CREATININE 2.3 mg/dL (0.7-1.3); POTASSIUM 5.4 mmol/L (3.5-5.1)
[2018-05-29 07:20] VITALS: BP 109/48
[2018-05-29 16:17] VITALS: BP 103/33
[2018-05-29 23:50] VITALS: BP 103/33
[2018-05-30 06:26] VITALS: BP 117/54
[2018-05-30 07:40] VITALS: BP 112/55
[2018-05-30] MEDS ORDERED: AMARYL2 MG PO (13:10)
[2018-05-30] MEDS ORDERED: AUGMENTIN 500-1 EACH PO (13:10)
[2018-05-30] MEDS ORDERED: PROTONIX 20 MG20 M1 PO (13:10)
== END 2018-05-30 17:00 | DRG 442 ==
LOC: ER 22:01 → 4E 23:30 → EROBS 23:30 → 4E 05-28 00:10 → SICU 05-29 16:08 → ENTRNSPT 05-30 16:27 → SICU 05-30 17:00
PROVIDERS: Emergency Medicine; Internal Medicine Geriatric Medicine
PROC: 0W9G3ZZ Drainage of Peritoneal Cavity, Percutaneous Approach (ICD-10-PCS; principal; 2018-05-29)
PROC: BB4BZZZ Ultrasonography of Pleura (ICD-10-PCS; 2018-05-29)
DX: K75.81 Nonalcoholic steatohepatitis (NASH) (principal); N18.4 Chronic kidney disease, stage 4 (severe); R18.8 Other ascites; K76.6 Portal hypertension; S00.91XA Abrasion of unspecified part of head, initial encounter; K74.60 Unspecified cirrhosis of liver; I12.9 Hypertensive chronic kidney disease with stage 1 through stage 4 chronic kidney disease, or unspecified chronic kidney disease; E11.22 Type 2 diabetes mellitus with diabetic chronic kidney disease; D63.8 Anemia in other chronic diseases classified elsewhere; E66.01 Morbid (severe) obesity due to excess calories; W18.39XA Other fall on same level, initial encounter; Y93.01 Activity, walking, marching and hiking; G47.33 Obstructive sleep apnea (adult) (pediatric); I89.0 Lymphedema, not elsewhere classified; Z68.39 Body mass index [BMI] 39.0-39.9, adult; Z79.899 Other long term (current) drug therapy; Z86.73 Personal history of transient ischemic attack (TIA), and cerebral infarction without residual deficits; Y92.89 Other specified places as the place of occurrence of the external cause; Y99.8 Other external cause status
CPT/HCPCS: 10084; 15002

== ENCOUNTER → 2018-07-21 | Outpatient (CLI) | payer OTHER, BC ==
[~2018-07-21] MED LIST changes: +AMOXICILLIN 50500 MG PO; +FLOMAX0.4 MG PO; +LANTUS100 UNIT/M SUBQ; +LEVAQUIN 750 M750 MG PO; +MIDODRINE HCL 55 M1 PO; +ONDANSETRON HCL4 M1 IV PUSH; +SODIUM BICARBO650 M3 PO; +TRAMADOL 50 MG50 MG PO; +VANCOMYCIN125 MG/2.1 PO
== END ==
LOC: ULTRA 09:41
DX: R18.8 Other ascites (principal); E11.22 Type 2 diabetes mellitus with diabetic chronic kidney disease; D64.9 Anemia, unspecified; N18.3 Chronic kidney disease, stage 3 (moderate); G47.33 Obstructive sleep apnea (adult) (pediatric); Z79.899 Other long term (current) drug therapy; Z98.890 Other specified postprocedural states

== ENCOUNTER 2018-07-31 15:38 | Inpatient (IN) | payer OTHER, BC ==
[~2018-07-31] VITALS: Ht 190.5 cm; Wt 121.3 kg
--- NOTE | ~2018-07-31 | HC ---
[facility] [place] [address] CONSULTATION Name: FREDERIC WHIPPLE Room #: 454-P [facility] IN M.R.#: [id number] Admission: 07/31/18 Attend Phys: Brittany Naranjo Discharge: 08/01/18 Date of : 48 Report #: [id number] THIS REPORT FOR: //name// CC: Alberto Quevedo DATE OF SERVICE: 08/01/2018 CHIEF COMPLAINT: Ulcerations to both arms. HISTORY OF PRESENT ILLNESS: This is a patient with whom I am familiar from hospitalization here in 06/2018. He had venous ulcers on his legs that were improving, has underlying end-stage cirrhosis. He was readmitted with weakness after a few weeks in rehab. He could not stand up on his own and was admitted. PAST MEDICAL HISTORY: Positive for cirrhosis of the liver due to LÓPEZ; abdominal ascites; portal hypertension; esophageal varices, treated at [facility]. He is noted to have multiple excoriations to his arms. He believes that they are self-induced. PAST SURGICAL HISTORY: Unknown. FAMILY HISTORY: Unknown. SOCIAL HISTORY: The patient lives alone. Daughter apparently lives nearby. No chronic alcohol or tobacco use. ALLERGIES: BACITRACIN, NEOMYCIN, POLYMYXIN. MEDICATIONS: Midodrine, oxybutynin, sodium bicarbonate, Ultram. REVIEW OF SYSTEMS: CONSTITUTIONAL: The patient denies fever, chills or weight loss. NEUROLOGIC: The patient has generalized weakness. Denies focal weakness, numbness or tingling. EYES: The patient denies visual change, redness or drainage. ENT: The patient denies earache, nasal drainage or sore throat. CARDIOVASCULAR: The patient denies chest pain, palpitation or diaphoresis. PULMONARY: The patient denies cough, shortness of breath. GASTROINTESTINAL: The patient denies nausea, vomiting, diarrhea. Does have some distention of the abdomen. EXTREMITIES: Demonstrate excoriations to the upper extremities. Denies pain associated with this. Other systems in a 14-point review of systems are negative. PHYSICAL EXAMINATION: [facility] [address] [place] [address] CONSULTATION Name: FREDERIC WHIPPLE Room #: 454-P [facility] IN M.R.#: [id number] Admission: 07/31/18 Attend Phys: Brittany Naranjo Discharge: 08/01/18 Date of : 48 Report #: [id number] VITAL SIGNS: At this time include pulse 65, respiratory rate of 15, blood pressure 121/52, temperature 98.1. GENERAL: This is a chronically ill-appearing male patient, who appears to be in no distress. HEENT: Head normocephalic. Nose and throat clear. NECK: Supple. LUNGS: Diminished. HEART: Regular rhythm. ABDOMEN: Distended, positive fluid wave noted. EXTREMITIES: Demonstrate multiple excoriations with small ulceration in the upper extremities. Lower extremities are relatively clear with edema under control. NEUROLOGIC: Alert, does move all 4 extremities spontaneously. CLINICAL IMPRESSION: 1. Multiple excoriations of upper extremities. This may be a manifestation of his underlying liver disease, although the possibility of scabies is not entirely excluded at this point in time. 2. End-stage cirrhosis. RECOMMENDATIONS: At this point in time, we will recommend permethrin to be applied to tonight and then washed off in the morning. We will recommend symptomatic care otherwise with topical cortisone cream. Continue his other medications. He will be discharged again likely today or tomorrow. I appreciate being asked to see him in consultation. <ELECTRONICALLY SIGNED> By: Dimitrios Whittaker MD 08/02/18 0744 [id number] Dimitrios Whittaker MD /nt
--- NOTE | ~2018-07-31 | H ---
[facility] [place] [address] HISTORY AND PHYSICAL Name: FREDERIC WHIPPLE Room #: 454-P ADM IN M.R.#: [id number] Admission: 07/31/18 Attend Phys: Brittany Naranjo Discharge: Date of : 48 Report #: [id number] THIS REPORT FOR: //name// CC: Alberto Quevedo DATE OF SERVICE: 07/31/2018 CHIEF COMPLAINT: Weakness. HISTORY OF PRESENT ILLNESS: The patient is a 68-year-old gentleman with multiple medical problems, came to the ER due to weakness. He was just discharged from a senior care rehab yesterday after a few weeks of rehab, which followed a several week LTAC stay for his underlying cirrhosis and related complications. He was taken home by the medical transport, but did not have the strength to stand up from the transferring wheelchair to his mechanical stair lift inside. The fire department was called and they were unable to have him stand and get up from the chair, so the fire department brought him to the Emergency Room and thus, he has been admitted. PAST MEDICAL HISTORY: Cirrhosis of the liver due to LÓPEZ, abdominal ascites, portal hypertension, esophageal varices that were treated at [facility] couple of years ago. He has had recurrent hospitalizations here for ascites that required tap. He has had hospitalizations for general weakness. He has been in skilled twice and LTAC without improvement in his condition. He also has chronic kidney disease, stage 3 to 4; diabetes type 2; history of C. diff, which is treated; urinary retention, now with a Rodriguez catheter; history of scrotal cellulitis. PAST SURGICAL HISTORY: Unknown. FAMILY HISTORY: Unknown. SOCIAL HISTORY: He was living alone. 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 ALLERGIES: BACITRACIN, NEOMYCIN, POLYMYXIN. MEDICATIONS: Midodrine, oxybutynin, sodium bicarbonate, Ultram. REVIEW OF SYSTEMS: He just complains of general weakness. Otherwise, no headache, chest pain, shortness of breath, abdominal pain, dysuria, syncope or fall. PHYSICAL EXAMINATION: VITAL SIGNS: Temperature 36.8, pulse 53, respirations 17, blood pressure 108/71, O2 sat 95% on room air. [address] [address] HISTORY AND PHYSICAL Name: FREDERIC WHIPPLE Room #: 454-P [facility] IN .R.#: [id number] Admission: 07/31/18 Attend Phys: Brittany Naranjo Discharge: Date of : 48 Report #: [id number] GENERAL: He is awake and alert, in no distress. HEAD AND NECK: Unremarkable. LUNGS: Clear. HEART: Regular. ABDOMEN: Protuberant, soft, normoactive bowel sounds. EXTREMITIES: No edema. NEUROLOGIC: Global strength 3/5 throughout. He has muscle atrophy and wasting throughout. LABORATORY DATA: Reviewed. ASSESSMENT: 1. Cirrhosis of the liver. 2. Nonalcoholic steatohepatitis. 3. Abdominal ascites. 4. Portal hypertension. 5. Chronic kidney disease stage 4. 6. Diabetes type 2. 7. Anemia of chronic disease. 8. Morbid obesity. 9. 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 PLAN: At this point, social work will be called along with therapies to see if there is a way we can get him in his house. He refuses to consider senior living placement. He has very limited options. His weakness is related to his cirrhosis and as documented he has been hospitalized, placed in skilled rehab and LTAC multiple times through this calendar year, none of which has improved his condition enough for him to live at home. He lacks the insight to see the need that he has which cannot be managed at home alone. <ELECTRONICALLY SIGNED> By: Oscar Upton MD 08/01/18 1554 0947 [id number] Oscar Upton MD /nt
--- NOTE | ~2018-07-31 | EKG ---
[address] [address] ELECTROCARDIOGRAM REPORT Name: FREDERIC WHIPPLE Room #: 454-P ADM IN M.R.#: [id number] Admission: 07/31/18 Attend Phys: Brittany Naranjo Discharge: Date of : 48 Report #: [id number] THIS REPORT FOR: //name// [facility] ED Test Date: 2018-07-31 Test Time: 15:52:24 Pat Name: FREDERIC WHIPPLE Department: Room: [facility] Gender: M Sports Director: ASHLY : 1950 Requested By: Elvie Singleton Order Number: [id number] MD: William Retana Measurements Intervals [place] Rate: 58 P: SD: QRS: -35 QRSD: 93 T: 57 QT: 395 QTc: 388 Interpretive Statements Junctional rhythm Left axis deviation Low voltage, extremity and precordial leads Poor R wave progression Compared to ECG 06/23/2018 04:52:14 No significant change was found Electronically Signed On 08-01-2018 8:01:32 CDT by William Retana [email or web address] <ELECTRONICALLY SIGNED> By: William Retana MD, [facility] 08/01/18 0801 1552 1552 William Retana MD, [facility] /EPI
[2018-07-31 15:38] VITALS: BP 122/70
[2018-07-31] MEDS ORDERED: MIDODRINE HCL 55 M1 PO (16:10)
[2018-07-31] MEDS ORDERED: OXYBUTYNIN 5 MG5 M2 PO (16:11)
[2018-07-31] MEDS ORDERED: TRAMADOL 50 MG50 MG PO (16:12)
[2018-07-31 16:33] LABS: BASOPHILS 0.8 % (0.0-2.0); EOSINOPHILS 2.1 % (0.0-3.0); HEMATOCRIT 28.1 % (42.0-52.0); HEMOGLOBIN 9.4 gm/dL (14.0-18.0); LYMPHOCYTES 6.1 % (24.0-44.0); MCH 25.7 pg (26.0-34.0); MCHC 33.5 g/dL (28.0-37.0); MCV 76.7 fL (80.0-100.0); MONOCYTES 8.1 % (1.0-8.0); POLYS 82.9 % (36.0-66.0); RBC 3.67 mil/uL (4.50-6.00); RDW 16.3 % (10.5-14.5); WBC 9.1 thou/uL (4.0-11.0)
[2018-07-31 16:46] LABS: CALCIUM 9.9 mg/dL (8.5-10.1); CREATININE 1.9 mg/dL (0.7-1.3); POTASSIUM 5.2 mmol/L (3.5-5.1)
[2018-07-31 16:59] LABS: URINE BILIRUBIN NEGATIVE (Negative); URINE BLOOD 1+ (Negative); URINE CLARITY HAZY; URINE COLOR YELLOW; URINE GLUCOSE-RANDOM* NEGATIVE (Negative); URINE KETONES NEGATIVE (Negative); URINE LEUKOCYTES-REFLEX 3+ (Negative); URINE NITRITE-REFLEX POSITIVE (Negative); URINE PROTEIN (DIPSTICK) NEGATIVE (Negative); URINE SPECIFIC GRAVITY 1.025 (1.005-1.035); URINE UROBILINOGEN 0.2 E.U./dl (0.2-1.0)
[2018-07-31 17:07] LABS: BACTERIA-REFLEX >30 Many /HPF (None Seen); CASTS None Seen /LPF (None Seen); CRYSTALS None Seen /LPF (None Seen); MUCUS 0-3 Light strn/LPF (None Seen); SQUAMOUS None Seen /LPF (0-3); URINE RBC 3-10 Few /HPF (0-2); URINE WBC-REFLEX 6-15 Few /HPF (0-5)
[2018-07-31 17:10] LABS: ANISOCYTOSIS 1+; PLATELET COUNT 192 thou/uL (150-400)
[2018-07-31 17:27] VITALS: BP 110/46
[2018-07-31 18:13] VITALS: BP 115/50
[2018-07-31 18:56] VITALS: BP 116/60
[2018-08-01 03:44] VITALS: BP 86/47
[2018-08-01 04:19] VITALS: BP 111/57
[2018-08-01 07:50] VITALS: BP 108/71
[2018-08-01 13:58] VITALS: BP 121/52
[2018-08-01 15:43] VITALS: BP 121/52
[2018-08-01 17:00] VITALS: BP 121/52
[2018-08-02 16:40] VITALS: BP 121/52
== END 2018-08-01 18:54 | DRG 433 ==
LOC: ER 15:38 → 4W 17:04 → EROBS 17:04 → 4W 18:32
PROVIDERS: Student in an Organized Health Care Education/Training Program
DX: K74.60 Unspecified cirrhosis of liver (principal); N18.4 Chronic kidney disease, stage 4 (severe); K76.6 Portal hypertension; R18.8 Other ascites; K75.81 Nonalcoholic steatohepatitis (NASH); E66.01 Morbid (severe) obesity due to excess calories; I12.9 Hypertensive chronic kidney disease with stage 1 through stage 4 chronic kidney disease, or unspecified chronic kidney disease; S60.512A Abrasion of left hand, initial encounter; S60.511A Abrasion of right hand, initial encounter; X58.XXXA Exposure to other specified factors, initial encounter; G72.9 Myopathy, unspecified; D63.8 Anemia in other chronic diseases classified elsewhere; E11.22 Type 2 diabetes mellitus with diabetic chronic kidney disease; Z88.1 Allergy status to other antibiotic agents; Z79.899 Other long term (current) drug therapy; Z68.33 Body mass index [BMI] 33.0-33.9, adult; Z98.49 Cataract extraction status, unspecified eye; Y93.89 Activity, other specified; Y92.89 Other specified places as the place of occurrence of the external cause; Y99.8 Other external cause status; Z89.422 Acquired absence of other left toe(s); Z88.7 Allergy status to serum and vaccine
CPT/HCPCS: 10040

== ENCOUNTER → 2018-08-18 | Outpatient (CLI) | payer OTHER, BC ==
[~2018-08-18] MED LIST changes: +OXYBUTYNIN 5 MG5 M2 PO
[2018-08-18 12:53] LABS: HEMOGLOBIN 10.3 gm/dL (14.0-18.0); MCH 24.7 pg (26.0-34.0); MCHC 32.3 g/dL (28.0-37.0); MCV 76.5 fL (80.0-100.0); RBC 4.18 mil/uL (4.50-6.00); RDW 17.2 % (10.5-14.5)
[2018-08-18 13:05] LABS: CALCIUM 9.5 mg/dL (8.5-10.1); CREATININE 2.4 mg/dL (0.7-1.3); POTASSIUM 4.2 mmol/L (3.5-5.1)
[2018-08-18 13:07] LABS: INR 1.1; PROTIME 11.7 Seconds (9.3-11.4)
== END | disposition home or self-care (01) ==
LOC: ULTRA 11:58
PROVIDERS: Internal Medicine
DX: R18.8 Other ascites (principal); R14.0 Abdominal distension (gaseous); G47.33 Obstructive sleep apnea (adult) (pediatric); E11.22 Type 2 diabetes mellitus with diabetic chronic kidney disease; N18.3 Chronic kidney disease, stage 3 (moderate); K74.60 Unspecified cirrhosis of liver; K76.6 Portal hypertension; D64.9 Anemia, unspecified; N49.2 Inflammatory disorders of scrotum; D72.829 Elevated white blood cell count, unspecified; Z88.8 Allergy status to other drugs, medicaments and biological substances; Z79.899 Other long term (current) drug therapy

== ENCOUNTER 2018-09-02 03:09 | Emergency (ER) | payer OTHER, BC ==
[~2018-09-02] VITALS: Ht 190.5 cm; Wt 113.8 kg
[2018-09-02 04:13] LABS: CALCIUM 9.1 mg/dL (8.5-10.1); CREATININE 1.9 mg/dL (0.7-1.3); POTASSIUM 4.2 mmol/L (3.5-5.1)
[2018-09-02 04:17] LABS: ABSOLUTE NEUTROPHILS 12.2 thou/uL (1.4-8.2); BASOPHILS 0.4 % (0.0-2.0); EOSINOPHILS 0.7 % (0.0-3.0); HEMATOCRIT 27.2 % (42.0-52.0); HEMOGLOBIN 8.8 gm/dL (14.0-18.0); LYMPHOCYTES 2.8 % (24.0-44.0); MCH 24.7 pg (26.0-34.0); MCHC 32.4 g/dL (28.0-37.0); MCV 76.4 fL (80.0-100.0); PLATELET COUNT 135 thou/uL (150-400); POLYS 91.1 % (36.0-66.0); RBC 3.56 mil/uL (4.50-6.00); RDW 17.7 % (10.5-14.5); WBC 13.4 thou/uL (4.0-11.0)
[2018-09-02] MEDS ORDERED: BISACODYL SUPP10 MG RECTAL (04:48)
[2018-09-02] MEDS ORDERED: DOXYCYCLINE 10100 MG PO (04:48)
[2018-09-02] MEDS ORDERED: LASIX 40 MG TAB40 M2 PO (04:49)
[2018-09-02] MEDS ORDERED: CONSTULOSE10 GM/152 PO (04:49)
[2018-09-02] MEDS ORDERED: GLARGINE SUBQ (04:50)
[2018-09-02] MEDS ORDERED: LOPERAMIDE 2 MG2 M1 PO (04:51)
[2018-09-02] MEDS ORDERED: FLORASTORKIDS250 MG PO (04:52)
[2018-09-02 08:10] LABS: URINE BILIRUBIN NEGATIVE (Negative); URINE BLOOD 3+ (Negative); URINE CLARITY SL CLOUDY; URINE COLOR YELLOW; URINE GLUCOSE-RANDOM* NEGATIVE (Negative); URINE KETONES NEGATIVE (Negative); URINE NITRITE-REFLEX NEGATIVE (Negative); URINE PROTEIN (DIPSTICK) NEGATIVE (Negative); URINE UROBILINOGEN 0.2 E.U./dl (0.2-1.0)
[2018-09-02 08:11] LABS: URINE LEUKOCYTES-REFLEX 1+ (Negative)
[2018-09-02 08:20] LABS: AMORPHOUS URATES Moderate /LPF (None Seen); CASTS None Seen /LPF (None Seen); SQUAMOUS None Seen /LPF (0-3); URINE WBC-REFLEX 6-15 Few /HPF (0-5)
[2018-09-02] MEDS ORDERED: CIPROFLOXACIN500 M1 PO (08:35)
[2018-09-02 12:18] VITALS: BP 98/56
== END 2018-09-02 12:20 | disposition short-term general hospital (02) ==
LOC: ER 03:09
PROVIDERS: Emergency Medicine
DX: N36.8 Other specified disorders of urethra (principal); N39.0 Urinary tract infection, site not specified; E11.22 Type 2 diabetes mellitus with diabetic chronic kidney disease; I12.9 Hypertensive chronic kidney disease with stage 1 through stage 4 chronic kidney disease, or unspecified chronic kidney disease; N18.4 Chronic kidney disease, stage 4 (severe); K74.60 Unspecified cirrhosis of liver; E66.01 Morbid (severe) obesity due to excess calories; Z89.422 Acquired absence of other left toe(s); Z79.01 Long term (current) use of anticoagulants; Z79.899 Other long term (current) drug therapy; Z88.1 Allergy status to other antibiotic agents; Z88.8 Allergy status to other drugs, medicaments and biological substances

== ENCOUNTER 2018-09-13 20:14 | Emergency (ER) | payer OTHER, BC ==
[~2018-09-13] VITALS: Ht 190.5 cm; Wt 114.8 kg
[~2018-09-13 20:14] MED LIST changes: +BISACODYL SUPP10 MG RECTAL; +CIPROFLOXACIN500 M1 PO; +CONSTULOSE10 GM/152 PO; +DOXYCYCLINE 10100 MG PO; +FLORASTORKIDS250 MG PO; +GLARGINE SUBQ; +LOPERAMIDE 2 MG2 M1 PO
[2018-09-13] MEDS ORDERED: FLOMAX0.4 MG PO (20:27)
[2018-09-13] MEDS ORDERED: ALDACTONE50 MG PO (20:27)
[2018-09-13] MEDS ORDERED: PROBIOTIC1 EAC1 PO (20:27)
[2018-09-13] MEDS ORDERED: KEFLEX500 M1 PO (20:28)
[2018-09-13] MEDS ORDERED: BUSPIRONE HCL10 MG PO (20:28)
[2018-09-13] MEDS ORDERED: MIRALAX17 GM PO (20:30)
[2018-09-13] MEDS ORDERED: NORCO 5-325 TA1 EACH PO ×2 (20:30→20:32)
[2018-09-13 22:07] LABS: URINE BILIRUBIN NEGATIVE (Negative); URINE BLOOD 3+ (Negative); URINE CLARITY SL CLOUDY; URINE COLOR YELLOW; URINE GLUCOSE-RANDOM* NEGATIVE (Negative); URINE KETONES NEGATIVE (Negative); URINE NITRITE-REFLEX NEGATIVE (Negative); URINE PROTEIN (DIPSTICK) NEGATIVE (Negative); URINE SPECIFIC GRAVITY <= 1.005 (1.005-1.035); URINE UROBILINOGEN 0.2 E.U./dl (0.2-1.0)
[2018-09-13 22:08] LABS: URINE LEUKOCYTES-REFLEX 3+ (Negative)
[2018-09-13 22:30] LABS: MUCUS 0-3 Light strn/LPF (None Seen); SQUAMOUS None Seen /LPF (0-3)
[2018-09-13 22:31] LABS: URINE RBC >20 Many /HPF (0-2)
[2018-09-13 22:32] LABS: BACTERIA-REFLEX None Seen /HPF (None Seen); CASTS None Seen /LPF (None Seen); CRYSTALS None Seen /LPF (None Seen); TRANSITIONAL EPITHEL CELL 4-10 Moderate /LPF (None Seen); YEAST-REFLEX Present (None Seen)
[2018-09-13 23:39] VITALS: BP 108/45
== END 2018-09-13 23:40 | disposition home or self-care (01) ==
LOC: ER 20:14
PROVIDERS: Emergency Medicine
DX: N30.00 Acute cystitis without hematuria (principal); I12.9 Hypertensive chronic kidney disease with stage 1 through stage 4 chronic kidney disease, or unspecified chronic kidney disease; E11.22 Type 2 diabetes mellitus with diabetic chronic kidney disease; N18.4 Chronic kidney disease, stage 4 (severe); E66.01 Morbid (severe) obesity due to excess calories; Z88.1 Allergy status to other antibiotic agents; Z88.8 Allergy status to other drugs, medicaments and biological substances; Z68.31 Body mass index [BMI] 31.0-31.9, adult